=== PATIENT | male | born 1960 | race Two or more races ===

== ENCOUNTER 2019-04-20 07:16 | Emergency (ER) | payer MEDICAID ==
[~2019-04-20] VITALS: Ht 167.6 cm; Wt 64.1 kg
[2019-04-20 07:32] VITALS: BP 155/100
--- NOTE | 2019-04-20 07:35 | NUR ---
PT RESTING COMFORTABLE. C/O LEFT EYE SWOLLEN, SORE THROAT WHEN COUGHING AND SWALLOWING, TROUBLE BREATHING FOR D DAYS. PA AT BEDSIDE. CALL LIGHT IN REACH. VS STABLE.
[2019-04-20] MEDS ORDERED: PROPARACAINE OPHTH 0.5%, 15ML EACHEYE ONE (08:00)
[2019-04-20] MEDS ORDERED: FLUORESCEIN OPHTHALMIC 1 MG STRIP EACHEYE ONE (08:00)
== END 2019-04-20 08:45 | disposition home or self-care (01) ==
LOC: ED 08:43
DX: H10.232 Serous conjunctivitis, except viral, left eye (principal); J00 Acute nasopharyngitis [common cold]
CPT/HCPCS: 71046; 99283